=== PATIENT | female | born 1990 | race Caucasian/White ===

== ENCOUNTER 2016-05-31 15:13 | Observation (INO) | payer OTHER ==
[~2016-05-31] VITALS: Ht 152.4 cm; Wt 105.7 kg
[~2016-05-31 15:13] MED LIST: CYCLOBENZAPRIN7.5 M1 PO; IBUPROFEN600 M1 PO; MOBIC 15MG15 MG PO; PERCOCET 5-3251 EACH PO; SKELAXIN800 MG PO; TRAMADOL50 MG PO; ZOFRAN4 M2 PO
--- NOTE | 2016-05-31 15:34 | NUR ---
Informed waiting has been performed.
--- NOTE | 2016-05-31 15:34 | NUR ---
TRIAGE: PT TO ER C/C "I'M HAVING A HARD TIME FEELING THE LEFT SIDE OF MY FACE. I HAVE A WEIRD FEELING IN MY LEFT HAND AND MY PULSE FEELS IRREGULAR". ONSET 40 MIN CRYPTOLOGIC SUPPORT SPECIALIST. DENIES ANY PAIN. TAKEN TO [facility] RM 5 FROM TRIAGE PER DIRECTOR OF CONSUMER AFFAIRS NICK.
--- NOTE | 2016-05-31 15:49 | NUR ---
PT AMBULATORY TO ROOM WITH FAST AND STEADY GAIT.
--- NOTE | 2016-05-31 15:59 | NUR ---
PT COMPLAINS OF NUMBNESS TO LEFT SIDE OF FACE AND FEELING OF LEFT EYE DROOPING. NO DROOPING OF LEFT EYE NOTED. SPEECH IS CLEAR. EVEN WRINKLING ACROSS FOREHEAD NOTED. PT ALSO COMPLAINS OF BLURRY VISION IN LEFT EYE. .
--- NOTE | 2016-05-31 16:00 | NUR ---
BP IN LEFT ARM 130/77 HR 81. BP IN RIGHT ARM 105/51 HR 79. PT COMPLAINS OF NUMBNESS IN LEFT ARM. PT PLACED ON HEART MONITOR.
--- NOTE | 2016-05-31 16:04 | NUR ---
FACIAL SYMMETRY IS NORMAL.
--- NOTE | 2016-05-31 16:31 | ED NEURO DEFICIT/STROKE ---
History of Present Illness General Chief Complaint: General Adult Stated Complaint: LEFT SIDE FACE AND ARM NUMBNESS Source: patient Exam Limitations: no limitations Vital Signs & Intake/Output Vital Signs & Intake/Output Vital Signs Date Time Temp Pulse Resp B/P Pulse O2 O2 Flow FiO2 Ox Delivery Rate 05/31 1603 97 Room Air 05/31 1531 97.3 72 20 123/79 98 Room Air Allergies Coded Allergies: shellfish derived (Intermediate, FACIAL SWELLING AND REDNESS 05/31/16) Reconcile Medications Cyclobenzaprine HCl 7.5 MG TABLET 1 TAB PO QPM PRN MUSCLE SPASMS Ibuprofen 600 MG TABLET 1 TAB PO Q6HR PRN PAIN Meloxicam (Mobic 15MG) 7.5 MG TABLET 1 TAB PO DAILY PRN PAIN/INFLAMMATION Metaxalone 800 MG TABLET 1 TAB PO Q8H PRN MUSCLE RELAXANT Ondansetron HCl (Zofran) 4 MG TABLET 1 TAB PO Q8 NAUSEA Oxycodone HCl/Acetaminophen (Percocet 5-325 MG Tablet) 1 EACH TABLET 1 TAB PO BID PRN PAIN TRAMADOL HCL (Tramadol) 50 MG TABLET 1-2 TAB PO Q6P PRN PAIN Triage Note: TRIAGE: PT TO ER C/C "I'M HAVING A HARD TIME FEELING THE LEFT SIDE OF MY FACE. I HAVE A WEIRD FEELING IN MY LEFT HAND AND MY PULSE FEELS IRREGULAR". ONSET 40 MIN INDEPENDENT LIVING ADVISOR. DENIES ANY PAIN. TAKEN TO [facility] RM 5 FROM TRIAGE PER JUNIOR BRAND MANAGER NICK. Triage Nurses Notes Reviewed? yes : No Patient currently breastfeeds: No HPI: Patient presents for evaluation of an abrupt onset of left facial numbness that occurred about an hour ago while in a conference. Patient states that symptoms began with a headache about an hour prior to the onset of the numbness. The headache resolved within the patient experienced a moderate to severe left facial numbness with an alteration of vision out of the left eye and then numbness of the left arm and hand. Would point she states that she spit out of the left side of her mouth. She denies any associated neck pain. She denies any previous episodes like this. She did experience heart palpitations over the weekend consisting of an intermittent series of pounding heart beats on Monday that lasted for about 2 hours then resolved. She did experience chest heaviness during those episodes. She is a nonsmoker and there is no family history of TIA or CVA. Nothing seemed to make her symptoms improved. Past History Travel History Traveled to [place] past 21 day No Medical History Any Pertinent Medical History? see below for history Neurological: NONE EENT: NONE Cardiovascular: NONE Respiratory: NONE Gastrointestinal: NONE Hepatic: NONE Renal: NONE Musculoskeletal: NONE Psychiatric: NONE Endocrine: NONE Blood Disorders: NONE Cancer(s): NONE PARTS EXPEDITER/Reproductive: NONE Surgical History Surgical History: non-contributory Psychosocial History What is your primary language Yoruba Tobacco Use: Never used ETOH Use: occasional use Illicit Drug Use: denies illicit drug use Family History Hx Contributory? No Review of Systems Review of Systems Constitutional: Reports: no symptoms. EENTM: Reports: no symptoms. Respiratory: Reports: no symptoms. Cardiovascular: Reports: no symptoms. GI: Reports: no symptoms. Genitourinary: Reports: no symptoms. Musculoskeletal: Reports: no symptoms. Skin: Reports: no symptoms. Neurological/Psychological: Reports: see HPI. Hematologic/Endocrine: Reports: no symptoms. Immunologic/Allergic: Reports: no symptoms. All Other Systems: Reviewed and Negative Physical Exam Physical Exam General Appearance: see below Cranial Nerves: normal hearing (see below) Comments: Gen.: Well-nourished, well-developed, no acute respiratory distress. Head: Normocephalic, atraumatic. Eyes: Normal inspection bilaterally Ears: Normal inspection bilaterally Nose: Normal inspection Throat/mouth : Moist mucosa Face: No apparent facial droop, sensation normal bilaterally to light touch. Neck: Supple, full range of motion, no goiter, no bruits or LAD Heart: Regular rate and rhythm, no murmurs rubs or gallops Lungs: Clear to auscultation bilaterally with normal air entry Chest: Nontender Back: Normal range of motion Abdomen: Soft, nontender, nondistended, normal bowel sounds Extremities: Normal range of motion grossly, equal radial pulses, no cyanosis clubbing or edema, hand grasps equal Neurologic: Cranial nerves 2-12 intact, speech is clear Skin: warm and dry Psychiatric: Calm, cooperative, no apparent delusions or hallucinations Core Measures CVA/TIA Diagnosis: Yes NIH Stroke Scale: Total 0 Severe Sepsis Present: No Septic Shock Present: No Bedside Dysphagia Screen Bedside Swallow Eval Done: Yes Result of Evaluation: Pass Progress Differential Diagnosis: Flowers's Palsy, stroke, tia, COMPLEX MIGRAINE Plan of Care: Orders Procedure Date/time Status Place in observation 02/28 1913 Active Add-on Test (ER Only) 05/31 1753 Active Telemetry/Product Developer 05/31 1643 Active EKG 05/31 1643 Active LYME TITRE 05/31 1631 Active URINALYSIS 05/31 1629 Complete TROPONIN LEVEL 05/31 162 Complete PARTIAL THROMBOPLASTIN TIME 05/31 162 Complete PROTHROMBIN TIME 05/31 1629 Complete HUMAN BETA HCG SCREEN 05/31 162 Complete COMPREHENSIVE METABOLIC PANEL 05/31 162 Complete CBC WITHOUT DIFFERENTIAL 05/31 162 Complete Laboratory Tests 05/31/16 1631: Anion Gap 10, Estimated GFR > 60, BUN/Creatinine Ratio 24.3, Glucose 84, Calcium 9.1, Total Bilirubin 0.8, AST 25, ALT 34, Alkaline Phosphatase 66, Troponin I < 0.01, Total Protein 6.9, Albumin 4.0, Globulin 2.9, Albumin/Globulin Ratio 1.4, Total Beta HCG NEGATIVE, PT 11.3, INR 1.08, APTT 32, CBC w Diff NO MAN DIFF REQ, RBC 4.65, MCV 83.2, MCH 27.8, RDW 13.3, MPV 9.2, Gran % 73.1, Lymphocytes % 19.5 L, Monocytes % 6.0, Eosinophils % 0.7, Basophils % 0.7, Absolute Granulocytes 7.9 H, Absolute Lymphocytes 2.1, Absolute Monocytes 0.6, Absolute Eosinophils 0.1, Absolute Basophils 0.1, PUBS MCHC 33.5, Lyme Disease Antibody Pending, Urine Color YEL, Urine Clarity CLEAR, Urine pH 6.0, Ur Specific [place] 1.020, Urine Protein NEG, Urine Ketones NEG, Urine Nitrite NEG, Urine Bilirubin NEG, Urine Urobilinogen 0.2, Ur Leukocyte Esterase NEG, Ur Microscopic EXAM NOT REQUIRED, Urine Hemoglobin NEG, Urine Glucose NEG Diagnostic Imaging: Discussed w/RAD: CT Scan. Radiology Impression: PATIENT: NEIL POWERS PRESENT AGE: 26 PATIENT ACCOUNT NO: [id number] : 88 LOCATION: [facility] ORDERING PHYSICIAN: ANTHONY FLOWERS MD SERVICE DATE: 05/31/16-163 EXAM TYPE: CAT - CT HEAD WO IV CONTRAST EXAMINATION: CT HEAD WITHOUT CONTRAST CLINICAL INFORMATION: Left facial numbness. COMPARISON: CT head 12/05/2013 TECHNIQUE: Contiguous axial imaging was performed from the skull base to vertex without intravenous administration of contrast. DLP: 600.71 mGy-cm FINDINGS: There is no evidence of acute intracranial hemorrhage or territorial infarction. No abnormal mass effect or midline shift is seen. Su to white matter differentiation is well preserved. No extra-axial fluid collections are identified. The ventricles are normal in size. There is no abnormal attenuation within the brain parenchyma. The osseous structures and soft tissues are normal. The mastoid air cells and visualized portions of the paranasal sinuses are well aerated. IMPRESSION: No acute intracranial pathology. DICTATED BY: YENY WESTBROOK MD DATE/ TIME DICTATED:05/31/161739 SCIENTIFIC RECRUITER:STACEY DATE/TIME TRANSCRIBED: 05/31/161739 CONFIDENTIAL, DO NOT COPY WITHOUT APPROPRIATE AUTHORIZATION. < Electronically signed in Other Vendor System> SIGNED BY: YENY WESTBROOK MD 1743 Initial ED EKG: NSR, rate (81), no ST T wave changes Comments: 05/31/2016 6:13:13 PM I have updated Neil on her test results. I have discussed her case with Dr. Modi who agrees with an aspirin and an observation stay for follow-up MRI scan and carotid Doppler studies. Departure Departure Disposition: STILL A PATIENT Condition: Stable Clinical Impression Primary Impression: Facial paresthesia Referrals: AUGUSTINE DAVID MD (PCP/Family) Departure Forms: Customer Survey General Discharge Information
[2016-05-31 16:53] LABS: PT 11.3 SEC (9.4-12.5); PTT 32 SEC (25-37)
[2016-05-31 16:55] LABS: ABSOLUTE BASOPHIL COUNT 0.1 /CUMM (0.0-0.2); ABSOLUTE EOSINOPHIL COUNT 0.1 /CUMM (0.0-0.7); ABSOLUTE GRANULOCYTE CT 7.9 /CUMM (1.4-6.5); ABSOLUTE LYMPH COUNT 2.1 /CUMM (1.2-3.4); ABSOLUTE MONOCYTE COUNT 0.6 /CUMM (0.10-0.60); BASOPHIL % 0.7 % (0.0-2.0); EOSINOPHIL % 0.7 % (0-5); GRANULOCYTE % 73.1 % (42.2-75.2); HEMATOCRIT 38.7 % (37-47); MEAN CORPUSCULAR HGB 27.8 PG (27.0-31.0); MEAN CORPUSCULAR HGB CONC 33.5 G/DL (33.0-37.0); MEAN CORPUSCULAR VOLUME 83.2 FL (81.0-99.0); MEAN PLATELET VOLUME 9.2 FL (7.4-10.4); PLATELET COUNT 173 /CUMM (130-400); RBC DISTRIBUTION WIDTH 13.3 % (11.5-14.5); RED BLOOD CELL CT 4.65 /CUMM (4.20-5.40); WHITE BLOOD CELL COUNT 10.8 /CUMM (4.8-10.8)
--- NOTE | 2016-05-31 17:31 | NUR ---
PT TO AND FROM CAT SCAN VIA STRETCHER.
--- NOTE | 2016-05-31 17:44 | CT SCAN REPORT ---
EXAMINATION: CT HEAD WITHOUT CONTRAST CLINICAL INFORMATION: Left facial numbness. COMPARISON: CT head 12/05/2013 TECHNIQUE: Contiguous axial imaging was performed from the skull base to vertex without intravenous administration of contrast. DLP: 600.71 mGy-cm FINDINGS: There is no evidence of acute intracranial hemorrhage or territorial infarction. No abnormal mass effect or midline shift is seen. Su to white matter differentiation is well preserved. No extra-axial fluid collections are identified. The ventricles are normal in size. There is no abnormal attenuation within the brain parenchyma. The osseous structures and soft tissues are normal. The mastoid air cells and visualized portions of the paranasal sinuses are well aerated. IMPRESSION: No acute intracranial pathology.
--- NOTE | 2016-05-31 18:36 | NUR ---
PT MEDICATED WITH 325MG ASPIRIN PO.
--- NOTE | 2016-05-31 19:32 | NUR ---
PT INFORMED OF PLAN OF CARE VIA DR MANN.
--- NOTE | 2016-05-31 19:54 | NUR ---
IV EST IN LF #[id number]
--- NOTE | 2016-05-31 20:33 | History & Physical ---
JEANINE MCKEON,YAO 05/31/162026: General Information and HPI MD Statement: I have seen and personally examined NEIL POWERS and documented this H&P. The patient is a 26 year old F who presented with a patient stated chief complaint of [numbness on the left side of my face]. Source of Information: patient Exam Limitations: no limitations History of Present Illness: Patient is a 26-year-old female with no significant past history presented to the emergency room this afternoon after she noted an abrupt left posterior subdural headache followed by left facial numbness around 3 PM this afternoon. She states that she was at a conference this afternoon in her symptoms started abruptly and subsequently she had some decreased vision loss in the left eye which has since been alleviated. She states that the numbness on left side of her face is still persistent however is not as severe as before. She also complained of accompanying left hand numbness with significant numbness of the index middle and ring finger of the left hand also. States that the paresthesia in her hands have completely alleviated. Her only complaint at present is mild left-sided facial numbness. Denies any history of GEN cell arteritis. Denies any history of TIA, stroke or myocardial infarction the past. Denies any abrupt vision loss or motor dysfunction. No facial drooling. The only thing she says is different is that on Monday she started a weight loss supplement and noticed palpitations after and stopped it after 3 doses on Monday. Allergies/Medications Allergies: Coded Allergies: shellfish derived (Intermediate, FACIAL SWELLING AND REDNESS 05/31/16) Past History Travel History Traveled to [place] past 21 day No Medical History Neurological: NONE EENT: NONE Cardiovascular: NONE Respiratory: NONE Gastrointestinal: NONE Hepatic: NONE Renal: NONE Musculoskeletal: NONE Psychiatric: NONE Endocrine: NONE Blood Disorders: NONE Cancer(s): NONE CAREER SERVICES ASSISTANT/Reproductive: NONE Surgical History Surgical History: non-contributory Past Family/Social History Psychosocial History Where do you live? Home Who Do You Live With? parent Services at Home: None Primary Language: Icelandic Smoking Status: Never Smoked ETOH Use: occasional use Illicit Drug Use: denies illicit drug use Functional Ability ADLs Independent: dressing, eating, toileting, bathing. IADLs Independent: shopping, housework, finances, food prep, telephone, transportation , medication admin. Review of Systems Review of Systems Constitutional: Reports: see HPI. Exam & Diagnostic Data Last 24 Hrs of Vital Signs/I&O Vital Signs Date Time Temp Pulse Resp B/P Pulse O2 O2 Flow FiO2 Ox Delivery Rate 05/31 1603 97 Room Air 05/31 1531 97.3 72 20 123/79 98 Room Air Intake & Output 05/31 1600 05/31 0800 05/31 0000 Intake Total Output Total Balance Patient 233 lb Weight Physical Exam General Appearance Alert, Oriented X3, Cooperative Skin No Rashes, No Breakdown HEENT Atraumatic, PERRLA, EOMI Neck Supple, No JVD, No thryomegaly, +2 Carotid Pulse wo Bruit Cardiovascular Regular Rate, Normal S1, Normal S2 Lungs Clear to Auscultation, Normal Air Movement Abdomen Normal Bowel Sounds, Soft, No Tenderness, No Hepatospenomegaly, No Masses Neurological Normal Gait, Normal Speech, Strength at 5/5 X4 Ext, Normal Tone, Sensation Intact, Cranial Nerves 3-12 NL, Reflexes 2+ Extremities No Clubbing, No Cyanosis, No Edema, passed bedside swallow eval, 5/5 strength all 4 extremities, sensation intact, no visual cuts, finger to nose normal, no cerebellar signs Vascular Normal Pulses, Pulses Symmetrical Last 24 Hrs of Labs/Lam: Laboratory Tests 05/31/16 1631: Anion Gap 10, Estimated GFR > 60, BUN/Creatinine Ratio 24.3, Glucose 84, Calcium 9.1, Total Bilirubin 0.8, AST 25, ALT 34, Alkaline Phosphatase 66, Troponin I < 0.01, Total Protein 6.9, Albumin 4.0, Globulin 2.9, Albumin/Globulin Ratio 1.4, Total Beta HCG NEGATIVE, PT 11.3, INR 1.08, APTT 32, CBC w Diff NO MAN DIFF REQ, RBC 4.65, MCV 83.2, MCH 27.8, RDW 13.3, MPV 9.2, Gran % 73.1, Lymphocytes % 19.5 L, Monocytes % 6.0, Eosinophils % 0.7, Basophils % 0.7, Absolute Granulocytes 7.9 H, Absolute Lymphocytes 2.1, Absolute Monocytes 0.6, Absolute Eosinophils 0.1, Absolute Basophils 0.1, PUBS MCHC 33.5, Lyme Disease Antibody Pending, Urine Color YEL, Urine Clarity CLEAR, Urine pH 6.0, Ur Specific [place] 1.020, Urine Protein NEG, Urine Ketones NEG, Urine Nitrite NEG, Urine Bilirubin NEG, Urine Urobilinogen 0.2, Ur Leukocyte Esterase NEG, Ur Microscopic EXAM NOT REQUIRED, Urine Hemoglobin NEG, Urine Glucose NEG Diagnostic Data EKG Results Rate 81, DC 144, QRS 90, QTc 441 Normal sinus rhythm Other Results IMPRESSION: No acute intracranial pathology. Assessment/Plan Assessment: Assessment- 1. Possible TIA 2. Left facial parasthesia Plan- Admit to telemetry Vitals per protocol Every 2 neurochecks Aspirin 81 mg daily, check lipid panel, high-dose statin- atorvastatin 80 mg daily Carotid Doppler MRI of the head with and without gadolinium in the morning Echocardiogram Cardiology and neurology consultation Will order ESR, rule out giant cell Subcutaneous Lovenox for DVT prophylaxis Regular diet Pain pathway Full code As Ranked By This Provider Problem List: 1. Facial paresthesia Core Measures/Miscellaneous Acute Coronary Syndrome ACS Diagnosis: No Cerebrovascular Accident CVA/TIA Diagnosis: Yes NIH Stroke Scale: Total 0 Date Last Known Well: 05/31/16 Symptom Start Date: 05/31/16 Reason tPA not ordered Medical Contraindication Bedside Swallow Eval Done: Yes Result of Evaluation: Pass Antithrombotic: Yes AFIB: No Aflutter: No Anticoagulant: Yes Evidence of Atherosclerosis: No LDL Assessed Within 24 Hours: Yes Currently on Statin: Yes PT Consult Ordered: No Comment: no PT needed Congestive Heart Failure CHF Diagnosis: No Venous Thromboembolism VTE Risk Factors: Obesity VTE Prophylaxis [facility]dered In[facility]/t: No contraindications No VTE Pharm Prophylaxis d/t: No contraindications VTE Diagnosis: No VTE Type: NONE VTE Confirmed by (Test): NONE Severe Sepsis Severe Sepsis Present: No Septic Shock Septic Shock Present: No Miscellaneous Documentation Attending Case Discussed With: SHARON FORD MD Primary Care Physician: JOANN MCKEON,[facility] Patient sees these Specialists none Level of Patient Care: Telemetry Resident Review Statement Resident Statement: examined this patient, discussed with internal medicine doctor SHARON FORD 06/01/16 0146: General Information and HPI Allergies/Medications Home Med list No Known Home Medications Attending MD Review Statement Attending Statement Attending MD Statement: examined this patient, discuss w/resident/PA/HEAD BAGGAGE PORTER, agreed w/resident/PA/HEAD BAGGAGE PORTER, reviewed EMR data (avail), reviewed images, amended to note Attending Assessment/Plan: CC: Numbness left side of the face and left arm numbness PMH: None Patient came to ER for acute onset of left facial numbness and left arm numbness , occurred about an hour ago before arrival. Patient states she had transient headache about an hour prior to the onset of the numbness. Left facial numbness started from occipital area gradually spreading to face, eventually associated with with vision changes left eye and then numbness of the left arm and hand. No neck pain, no chest pain, no current headache, no LOC, no seizure-like activity. currently most of her symptoms resolved except some numbness on the left side of her face. She denies any previous episodes like this. She had an episode of heart palpitations over the weekend after starting weight loss medication. Vitals: Afebrile, pulse, RRR, blood pressure, O2 saturation within acceptable range. On examination: A O 3, anxious, no acute distress, neck supple, no lymphadenopathy, no JVD, mucosa moist, gait stable, no pronator drift, complete neurological examination including sensory examination and vision examination normal. Pupils equal round reactive bilaterally. CVS: S1-S2, RRR. RS: Clear to auscultate bilaterally. Abdomen: Soft, NT, ND, bowel sounds present. No peripheral edema, peripheral pulses and perfusion normal. Labs: CBC, BMP, LFT, urinalysis within acceptable range. CT head: No acute intracranial pathology. EKG unremarkable A and P #1 transient numbness of left side of face: Along with vision changes and left arm numbness. All symptoms resolved, except minimum numbness on the left side of the face. Given her risk evaluation, no smoking, no diabetes, no hypertension, no dyslipidemia, cardiac arrhythmias, young age, less likely TIA. But will benefit from workup with 2-D echocardiogram, telemetry monitoring, carotid Doppler, lipid profile, neurochecks. Patient received aspirin in ER, and the dose of statin. Inform neurology in a.m., MRI brain in a.m. Other possibilities including arachnoid hemorrhage, carotid dissection less likely as currently hemodynamically stable, no focal neurological deficit, no chest pain, no headache. There is suspicion of MS again she will benefit from MRI brain. #2 DVT prophylaxis: Alps and ambulation
--- NOTE | 2016-05-31 20:43 | NUR ---
BP IN RIGHT ARM 118/72 HR 80 BP IN LEFT ARM 102/70 HR 80
--- NOTE | 2016-05-31 20:50 | NUR ---
PT HAS BED #188-1
--- NOTE | 2016-05-31 21:05 | NUR ---
PHARMACY CALLED FOR LIPITOR.
--- NOTE | 2016-05-31 21:27 | NUR ---
PT TO US VIA STRETCHER REPORT CALLED TO MARA ON TELE
[2016-05-31 22:30] VITALS: BP 138/78
--- NOTE | 2016-05-31 22:57 | ULTRASOUND REPORT ---
EXAMINATION: US DUPLEX CAROTID AND VERTEBRAL CLINICAL INFORMATION: Assess for stenosis. Previous head CT describes left facial numbness. COMPARISON: Head CT performed earlier today. TECHNIQUE: Real-time ultrasound and Doppler techniques (integrating B-mode 2D vascular images, Doppler spectral analysis and color flow Doppler imaging) were utilized to interrogate the extracranial carotid and vertebral arteries bilaterally. The degree of stenosis determined by criteria similar to NASCET. FINDINGS: Right common carotid artery peak systolic velocities range between 80.3 and 119 cm/s with a maximal end-diastolic velocity of 23.6 cm/s. Right internal carotid artery peak systolic velocities range between 68 and 104 cm/s with maximal end-diastolic velocity of 33 cm/s. There is antegrade flow within the right vertebral artery. No calcific atherosclerotic disease is appreciated at the right carotid bifurcation. Left common carotid artery peak systolic velocities range between 85 and 116 cm/s with a maximal end-diastolic velocity of 25.9 cm/s. Left internal carotid artery peak systolic velocities range between 58.6 and 131 cm/s with a maximal end-diastolic velocity of 65.2 cm/s. Left external carotid artery peak systolic velocity is 74.5 cm/s. There is antegrade flow within the left vertebral artery. No calcific atherosclerotic disease of the left carotid bifurcation. Left internal carotid artery is tortuous distally. IMPRESSION: An apparent 50-69% stenosis of the left internal carotid artery by sonographic criteria may be artifactually related to vessel tortuosity versus a true stenosis. There is no significant arterial stenosis involving the right internal carotid artery. Normal antegrade flow within the vertebral arteries bilaterally.
[2016-06-01 08:00] VITALS: BP 108/58
--- NOTE | 2016-06-01 09:20 | Cons- Cardiology ---
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 The patient presented to the emergency room yesterday with new onset neurologic symptoms. The patient was sitting in a conference and developed a left posterior headache which was followed by numbness of the left face at about 3:00 yesterday. At that time, she also felt that her right carotid pulse was pounding and that her left carotid pulse was markedly less than on the right side. She also had a sense of visual disturbance in the left eye was subsequently dissipated. Over the next several hours, patient's symptoms slowly abated. She also noted some numbness of her left hand. This has also dissipated as well. Today, the patient is generally feeling well. In the course of her evaluation, the patient was noted to have an abnormal carotid ultrasound. I was asked to see the patient for assistance with management of any related cardiac issues. The patient has otherwise been stable from a cardiac standpoint. She denies any known history of cardiovascular risk factors or cardiac disease. She was seen at the [facility] weight loss program and started on phentermine. She took 3 doses on Monday but noted palpitations and did not take any further doses after that time. She denies any prior history of palpitations or arrhythmia. Allergies/Medications Allergies: Coded Allergies: shellfish derived (Intermediate, FACIAL SWELLING AND REDNESS 05/31/16) Home Med List: No Known Home Medications Current Medications: Current Medications Sig/Lon Start time Last Medication Dose Route Stop Time Status Admin Acetaminophen 650 MG Q6 05/31 2359 DC PO Acetaminophen 650 MG Q6P PRN 05/31 2315 AC PO Acetaminophen/ 1 TAB Q6 05/31 2359 DC Hydrocodone Bitart PO Acetaminophen/ 1 TAB Q6P PRN 05/31 2315 AC Hydrocodone Bitart PO Aspirin 81 MG DAILY 06/01 1000 AC PO Aspirin 0 .STK-MED ONE 05/31 1837 DC PO Aspirin 325 MG ONCE ONE 05/31 1815 DC 05/31 PO 05/31 181 183 Atorvastatin Calcium 80 MG 1700 05/31 2100 AC 05/31 PO 2117 Enoxaparin Sodium 40 MG DAILY 06/01 1000 AC SC Oxycodone/ 2 TAB Q6P PRN 05/31 2100 AC Acetaminophen PO Past History Travel History Traveled to [place] past 21 day No Medical History Blood Transfusion Hx: No Neurological: NONE EENT: NONE Cardiovascular: NONE Respiratory: NONE Gastrointestinal: NONE Hepatic: NONE Renal: NONE Musculoskeletal: NONE Psychiatric: NONE Endocrine: NONE Blood Disorders: NONE Cancer(s): NONE RODEO RIDER/Reproductive: NONE Surgical History Surgical History: non-contributory Psychosocial History Where Do You Live? Home Who Do You Live With? parent Services at Home: None Primary Language: [place] Smoking Status: Never Smoked ETOH Use: occasional use Illicit Drug Use: denies illicit drug use Functional Ability ADLs Independent: dressing, eating, toileting, bathing. IADLs Independent: shopping, housework, finances, food prep, telephone, transportation , medication admin. Exam & Diagnostic Data Vital Signs and I&O Vital Signs Date Time Temp Pulse Resp B/P Pulse O2 O2 Flow FiO2 Ox Delivery Rate 06/02 799 97.9 78 20 108/58 97 Room Air 05/31 2230 97.8 96 18 138/78 98 Room Air 05/31 204 80 102/70 05/31 2041 80 118/72 05/31 1603 97 Room Air 05/31 1531 97.3 72 20 123/79 98 Room Air Intake & Output 06/01 1600 06/01 0800 06/01 0000 05/31 1600 05/31 0800 05/31 0000 Intake Total 480 480 Output Total Balance 480 480 Intake, Oral 480 480 Number 1 Bowel Movements Patient 233 lb 233 lb Weight Physical Exam: General Appearance Alert, Oriented X3, Cooperative Skin normal HEENT normal Neck Supple, No JVD, No thryomegaly, +2 Carotid Pulse wo Bruit Cardiovascular Regular Rate, Normal S1, Normal S2, no audible murmurs Lungs Clear to Auscultation and percussion bilaterally Abdomen Normal Neurological grossly nonfocal Extremities No Clubbing, No Cyanosis, No Edema, Vascular Normal Pulses, Pulses Symmetrical Labs/Lam Results: Laboratory Tests 05/31 05/31 05/31 2340 2340 1631 Chemistry Sodium (137 - 145 mmol/L) 137 Potassium (3.5 - 5.1 mmol/L) 4.0 Chloride (98 - 107 mmol/L) 106 Carbon Dioxide (22 - 30 mmol/L) 21 L Anion Gap (5 - 16) 10 BUN (7 - 17 mg/dL) 17 Creatinine (0.5 - 1.0 mg/dL) 0.7 Estimated GFR (>60 ml/min) > 60 BUN/Creatinine Ratio (7 - 25 %) 24.3 Glucose (65 - 99 mg/dL) 84 Calcium (8.4 - 10.2 mg/dL) 9.1 Total Bilirubin (0.2 - 1.3 mg/dL) 0.8 AST (14 - 36 U/L) 25 ALT (9 - 52 U/L) 34 Alkaline Phosphatase (<127 U/L) 66 Troponin I (< 0.11 ng/ml) < 0.01 Total Protein (6.3 - 8.2 g/dL) 6.9 Albumin (3.5 - 5.0 g/dL) 4.0 Globulin (1.9 - 4.2 gm/dL) 2.9 Albumin/Globulin Ratio (1.1 - 2.2 %) 1.4 Triglycerides (<150 mg/dL) 48 Cholesterol (<200 MG/DL) 119 LDL Cholesterol, Calc (65 - 129 mg/dL) 60 L HDL Cholesterol (40 - 60 mg/dL) 50 Cholesterol/HDL Ratio (0.00 - 4.23 %) 2 Vitamin B12 (239 - 931 pg/mL) 550 Vit D 1,25-Dihyd Total Pending 1,25 Dihydroxy Vit D2 Pending 1,25 Dihydroxy Vit D3 Pending Folate (2.76 - 20.0 ng/mL) 11.8 TSH (0.270 - 4.200 uIU/mL) 1.990 Free T4 (0.79 - 2.35 ng/dL) 1.09 Total Beta HCG (NEGATIVE) NEGATIVE Coagulation PT (9.4 - 12.5 SEC) 11.3 INR (0.90 - 1.19) 1.08 APTT (25 - 37 SEC) 32 Hematology CBC w Diff NO MAN DIFF REQ WBC (4.8 - 10.8 /CUMM) 10.8 RBC (4.20 - 5.40 /CUMM) 4.65 Hgb (12.0 - 16.0 G/DL) 12.9 Hct (37 - 47 %) 38.7 MCV (81.0 - 99.0 FL) 83.2 MCH (27.0 - 31.0 PG) 27.8 RDW (11.5 - 14.5 %) 13.3 Plt Count (130 - 400 /CUMM) 173 MPV (7.4 - 10.4 FL) 9.2 Gran % (42.2 - 75.2 %) 73.1 Lymphocytes % (20.5 - 51.1 %) 19.5 L Monocytes % (1.7 - 9.3 %) 6.0 Eosinophils % (0 - 5 %) 0.7 Basophils % (0.0 - 2.0 %) 0.7 Absolute Granulocytes (1.4 - 6.5 /CUMM) 7.9 H Absolute Lymphocytes (1.2 - 3.4 /CUMM) 2.1 Absolute Monocytes (0.10 - 0.60 /CUMM) 0.6 Absolute Eosinophils (0.0 - 0.7 /CUMM) 0.1 Absolute Basophils (0.0 - 0.2 /CUMM) 0.1 PUBS MCHC (33.0 - 37.0 G/DL) 33.5 ESR Westergren (0 - 20 MM) 7 Serology Lyme Disease Antibody Pending Toxicology Urine Opiates Screen (>2000 NG/ML) < 100.00 Methadone Screen (>300 NG/ML) < 40 Barbiturate Screen (>200 NG/ML) < 60 Ur Phencyclidine Scrn (>25 NG/ML) < 6.00 Amphetamines Screen (>1000 NG/ML) < 100 U Benzodiazepines Scrn (>200 NG/ML) < 85 Urine Cocaine Screen (>300 NG/ML) < 50 Urine Cannabis Screen (>50 NG/ML) < 5.00 Urines Urine Color (YEL,AMB,STR) YEL Urine Clarity (CLEAR) CLEAR Urine pH (5.0 - 8.0) 6.0 Ur Specific [place] (1.001 - 1.035) 1.020 Urine Protein (NEG,<30 MG/DL) NEG Urine Ketones (NEG) NEG Urine Nitrite (NEG) NEG Urine Bilirubin (NEG) NEG Urine Urobilinogen (0.1 - 1.0 EU/dl) 0.2 Ur Leukocyte Esterase (NEG) NEG Urine Hemoglobin (NEG) NEG Urine Glucose (N MG/DL) NEG Diagnostic Data Other Results Carotid Doppler: MPRESSION: An apparent 50-69% stenosis of the left internal carotid artery by sonographic criteria may be artifactually related to vessel tortuosity versus a true stenosis. There is no significant arterial stenosis involving the right internal carotid artery. Normal antegrade flow within the vertebral arteries bilaterally. Assessment/Plan Assessment/Plan Assessment: 1. Neurologic symptoms; Possible TIA-at the present time, the patient's symptoms have entirely resolved. MRI, neurology input, etc. remain pending. Any decisions about possible further cardiac evaluation will depend on neurology input and the results of the MRI. 2. Abnormal carotid ultrasound-review of the patient's MRI shows a normal right carotid system. On the left carotid system, the common carotid, bifurcation, and proximal internal and external carotid arteries are grossly normal. In the mid to distal internal carotid artery there is a loud area of vessel tortuosity present with flow turbulence and elevated flow velocities. The Doppler findings may purely be related to the vessel tortuosity. No clear anatomic images are recorded. There is a ill-defined linear echodensity present at the level of the lesser tortuosity which likely represents artifact. Further evaluation pending. Recommendations: -For now, I would await neurology input and the results of the MRI prior to any further plans. -Further decisions after the neurology evaluation and MRI are available. -At some point, follow-up ultrasound images of the left carotid system would be useful to better define the anatomic in the area of the vessel tortuosity. Consult Acknowledgment - Thank you for your consult request.
--- NOTE | 2016-06-01 12:00 | PN- Att Addend ---
Attending Addendum Attending Brief Note 26F no PMH presenting with acute onset of left sided facial numbness and weakness, left hand numbness and weakness, lasting for a few hours. Patient was in her usual state of health and was attending a conference. SHe had been experiencing posterior headache for a few hours prior to symptoms. Her hand and facial symptoms have resolved, and she feels a heaviness to her left eye. Vision is intact. No other neurological symptoms. Neuro exam, including cranial nerve exam, is grossly intact. Of note, patient had started phendimetrazine as a weight loss supplement 5 days ago, but had stopped after 3 days. Carotid doppler had shown 60% stenosis vs tortuous artery on left. EKG is NSR. Current Medications Sig/Lon Start time Last Medication Dose Route Stop Time Status Admin Acetaminophen 650 MG Q6 05/31 2359 DC PO Acetaminophen 650 MG Q6P PRN 05/31 2315 AC PO Acetaminophen/ 1 TAB Q6 05/31 2359 DC Hydrocodone Bitart PO Acetaminophen/ 1 TAB Q6P PRN 05/31 2315 AC Hydrocodone Bitart PO Aspirin 81 MG DAILY 06/01 1000 AC 06/01 PO 1042 Aspirin 0 .STK-MED ONE 05/31 1837 DC PO Aspirin 325 MG ONCE ONE 05/31 1815 DC 05/31 PO 05/31 1816 1836 Atorvastatin Calcium 80 MG 1700 05/31 2100 AC 05/31 PO 2118 Enoxaparin Sodium 40 MG DAILY 06/01 1000 AC SC Oxycodone/ 2 TAB Q6P PRN 05/31 2100 AC Acetaminophen PO Laboratory Tests 05/31 05/31 05/31 2340 2340 1631 Chemistry Sodium (137 - 145 mmol/L) 137 Potassium (3.5 - 5.1 mmol/L) 4.0 Chloride (98 - 107 mmol/L) 106 Carbon Dioxide (22 - 30 mmol/L) 21 L Anion Gap (5 - 16) 10 BUN (7 - 17 mg/dL) 17 Creatinine (0.5 - 1.0 mg/dL) 0.7 Estimated GFR (>60 ml/min) > 60 BUN/Creatinine Ratio (7 - 25 %) 24.3 Glucose (65 - 99 mg/dL) 84 Calcium (8.4 - 10.2 mg/dL) 9.1 Total Bilirubin (0.2 - 1.3 mg/dL) 0.8 AST (14 - 36 U/L) 25 ALT (9 - 52 U/L) 34 Alkaline Phosphatase (<127 U/L) 66 Troponin I (< 0.11 ng/ml) < 0.01 Total Protein (6.3 - 8.2 g/dL) 6.9 Albumin (3.5 - 5.0 g/dL) 4.0 Globulin (1.9 - 4.2 gm/dL) 2.9 Albumin/Globulin Ratio (1.1 - 2.2 %) 1.4 Triglycerides (<150 mg/dL) 48 Cholesterol (<200 MG/DL) 119 LDL Cholesterol, Calc (65 - 129 mg/dL) 60 L HDL Cholesterol (40 - 60 mg/dL) 50 Cholesterol/HDL Ratio (0.00 - 4.23 %) 2 Vitamin B12 (239 - 931 pg/mL) 550 Vit D 1,25-Dihyd Total Pending 1,25 Dihydroxy Vit D2 Pending 1,25 Dihydroxy Vit D3 Pending Folate (2.76 - 20.0 ng/mL) 11.8 TSH (0.270 - 4.200 uIU/mL) 1.990 Free T4 (0.79 - 2.35 ng/dL) 1.09 Total Beta HCG (NEGATIVE) NEGATIVE Coagulation PT (9.4 - 12.5 SEC) 11.3 INR (0.90 - 1.19) 1.08 APTT (25 - 37 SEC) 32 Hematology CBC w Diff NO MAN DIFF REQ WBC (4.8 - 10.8 /CUMM) 10.8 RBC (4.20 - 5.40 /CUMM) 4.65 Hgb (12.0 - 16.0 G/DL) 12.9 Hct (37 - 47 %) 38.7 MCV (81.0 - 99.0 FL) 83.2 MCH (27.0 - 31.0 PG) 27.8 RDW (11.5 - 14.5 %) 13.3 Plt Count (130 - 400 /CUMM) 173 MPV (7.4 - 10.4 FL) 9.2 Gran % (42.2 - 75.2 %) 73.1 Lymphocytes % (20.5 - 51.1 %) 19.5 L Monocytes % (1.7 - 9.3 %) 6.0 Eosinophils % (0 - 5 %) 0.7 Basophils % (0.0 - 2.0 %) 0.7 Absolute Granulocytes (1.4 - 6.5 /CUMM) 7.9 H Absolute Lymphocytes (1.2 - 3.4 /CUMM) 2.1 Absolute Monocytes (0.10 - 0.60 /CUMM) 0.6 Absolute Eosinophils (0.0 - 0.7 /CUMM) 0.1 Absolute Basophils (0.0 - 0.2 /CUMM) 0.1 PUBS MCHC (33.0 - 37.0 G/DL) 33.5 ESR Westergren (0 - 20 MM) 7 Serology Lyme Disease Antibody (RATIO) 0.16 Toxicology Urine Opiates Screen (>2000 NG/ML) < 100.00 Methadone Screen (>300 NG/ML) < 40 Barbiturate Screen (>200 NG/ML) < 60 Ur Phencyclidine Scrn (>25 NG/ML) < 6.00 Amphetamines Screen (>1000 NG/ML) < 100 U Benzodiazepines Scrn (>200 NG/ML) < 85 Urine Cocaine Screen (>300 NG/ML) < 50 Urine Cannabis Screen (>50 NG/ML) < 5.00 Urines Urine Color (YEL,AMB,STR) YEL Urine Clarity (CLEAR) CLEAR Urine pH (5.0 - 8.0) 6.0 Ur Specific [place] (1.001 - 1.035) 1.020 Urine Protein (NEG,<30 MG/DL) NEG Urine Ketones (NEG) NEG Urine Nitrite (NEG) NEG Urine Bilirubin (NEG) NEG Urine Urobilinogen (0.1 - 1.0 EU/dl) 0.2 Ur Leukocyte Esterase (NEG) NEG Urine Hemoglobin (NEG) NEG Urine Glucose (N MG/DL) NEG Plan - Observation in telemetry - Obtain MRI head - Vascular surgery consult for carotid doppler - Cardiology consulted, please follow recommendations - Obtain echocardiogram - Lipid panel and TSH normal - Neurology consult - Will continue ASA and statin for now, but suspect more like symptoms are either migraine or medication related - DVT PPx
--- NOTE | 2016-06-01 12:40 | MRI REPORT ---
EXAMINATION: MR BRAIN WITHOUT AND WITH CONTRAST CLINICAL INFORMATION: Left facial numbness. Assess for acute stroke versus TIA. COMPARISON: CT scan of the head 05/31/2016. TECHNIQUE: MRI of the brain was obtained using routine sequences before and after the intravenous administration of 10 mL of Gadavist. FINDINGS: No diffusion abnormalities are identified to suggest an acute or subacute infarct. No mass effect or midline shift is seen. The ventricles are normal in size. There are a few scattered foci of increased T2 and FLAIR signal in the periventricular and subcortical white matter. No extra-axial fluid collections are seen. The cerebellar tonsillar tips lie 3 mm below the level of the foramen magnum and appear slightly pointed. The brainstem appears normal. There is a linear area of enhancement in the right frontal lobe, which may be consistent with a developmental venous anomaly (image 16/25, sequence 12). No pathologic magnetic susceptibility artifact is identified on the gradient refocused acquisition. Marrow signal and midline structures are normal. The major intracranial flow-voids at the level of the [place] are preserved. The dural venous sinus flow-voids are maintained. The mastoid air cells and paranasal sinuses are well-aerated. IMPRESSION: 1. There are no acute bleeds or infarcts. 2. 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 3. There are no masses or areas of abnormal enhancement. 4. The small foci of increased T2 and FLAIR signal in the white matter are nonspecific and may be consistent with sequelae of vasculitis or migraine. 5. The cerebellar tonsillar tips lie 3 mm below the level of the foramen magnum and appear slightly pointed. This may be consistent with a mild Chiari I malformation.
--- NOTE | 2016-06-01 13:02 | PN- Housestaff ---
See Addendum Subjective Follow-up For: Questionable migraine Tele-Events Since Last Visit: Sinus rhythm no overnight events Subjective: Seen and examined the patient, continues to have left lower lid heaviness. Denies any tingling numbness weakness of the upper and lower extremities. That she took phendimetrazine on monday for the first time. After she took the medication she had transient palpitations. Review of Systems Constitutional: Denies: chills, diaphoresis, fever, malaise, weakness, unexplained weight loss. Cardiovascular: Denies: chest pain, edema, orthopena, palpitations, peripheral edema, syncope. Respiratory: Denies: cough, hemoptysis, orthopnea, short of breath, sputum production, stridor, wheezing. Objective Last 24 Hrs of Vital Signs/I&O Vital Signs Date Time Temp Pulse Resp B/P Pulse O2 O2 Flow FiO2 Ox Delivery Rate 06/02 799 97.9 78 20 108/58 97 Room Air 05/31 2230 97.8 96 18 138/78 98 Room Air 05/31 204 80 102/70 05/31 2041 80 118/72 05/31 1603 97 Room Air Intake & Output 06/01 1600 06/01 0800 06/01 0000 Intake Total 480 480 Output Total Balance 480 480 Intake, Oral 480 480 Number 1 1 Bowel Movements Patient 233 lb Weight Physical Exam General Appearance: Alert, Oriented X3, Cooperative, No Acute Distress Cardiovascular: Regular Rate, Normal S1, Normal S2 Lungs: Clear to Auscultation, Normal Air Movement Abdomen: Normal Bowel Sounds, Soft Neurological: Strength at 5/5 X4 Ext, Normal Tone, Sensation Intact, Cranial Nerves 3-12 NL Current Medications: Current Medications Sig/Lon Start time Last Medication Dose Route Stop Time Status Admin Acetaminophen 650 MG Q6 05/31 2359 DC PO Acetaminophen 650 MG Q6P PRN 05/31 2315 AC PO Acetaminophen/ 1 TAB Q6 05/31 2359 DC Hydrocodone Bitart PO Acetaminophen/ 1 TAB Q6P PRN 05/31 2315 AC Hydrocodone Bitart PO Aspirin 81 MG DAILY 06/01 1000 AC 06/01 PO 1042 Aspirin 0 .STK-MED ONE 05/31 1837 DC PO Aspirin 325 MG ONCE ONE 05/31 1815 DC 05/31 PO 05/31 181 183 Atorvastatin Calcium 80 MG 1700 05/31 2099 AC 05/31 PO 2118 Enoxaparin Sodium 40 MG DAILY 06/01 1000 AC SC Oxycodone/ 2 TAB Q6P PRN 05/31 2099 AC Acetaminophen PO Last 24 Hrs of Lab/Lam Results Last 24 Hrs of Labs/Mics: Laboratory Tests 05/31/16 2340: Triglycerides 48, Cholesterol 119, LDL Cholesterol, Calc 60 L, HDL Cholesterol 50, Cholesterol/HDL Ratio 2, Vitamin B12 550, Folate 11.8, TSH 1.990, Free T4 1.09 05/31/16 2340: Vit D 1,25-Dihyd Total Pending, 1,25 Dihydroxy Vit D2 Pending, 1,25 Dihydroxy Vit D3 Pending 05/31/16 1631: Anion Gap 10, Estimated GFR > 60, BUN/Creatinine Ratio 24.3, Glucose 84, Calcium 9.1, Total Bilirubin 0.8, AST 25, ALT 34, Alkaline Phosphatase 66, Troponin I < 0.01, Total Protein 6.9, Albumin 4.0, Globulin 2.9, Albumin/Globulin Ratio 1.4, Total Beta HCG NEGATIVE, PT 11.3, INR 1.08, APTT 32, CBC w Diff NO MAN DIFF REQ, RBC 4.65, MCV 83.2, MCH 27.8, RDW 13.3, MPV 9.2, Gran % 73.1, Lymphocytes % 19.5 L, Monocytes % 6.0, Eosinophils % 0.7, Basophils % 0.7, Absolute Granulocytes 7.9 H, Absolute Lymphocytes 2.1, Absolute Monocytes 0.6, Absolute Eosinophils 0.1, Absolute Basophils 0.1, PUBS MCHC 33.5, ESR Westergren 7, Lyme Disease Antibody 0.16, Urine Opiates Screen < 100.00, Methadone Screen < 40, Barbiturate Screen < 60, Ur Phencyclidine Scrn < 6.00, Amphetamines Screen < 100, U Benzodiazepines Scrn < 85, Urine Cocaine Screen < 50, Urine Cannabis Screen < 5.00, Urine Color YEL, Urine Clarity CLEAR, Urine pH 6.0, Ur Specific [place] 1.020, Urine Protein NEG, Urine Ketones NEG, Urine Nitrite NEG, Urine Bilirubin NEG, Urine Urobilinogen 0.2, Ur Leukocyte Esterase NEG, Urine Hemoglobin NEG, Urine Glucose NEG Assessment/Plan Assessment: 86-year-old woman with no significant medical conditions and on not on any regular medications admitted here for headache a few hours duration followed by facial and hand numbness and tingling associated with heaviness of left eye. CT head showed no acute intracranial pathology, carotid ultrasound shows 50- 69% stenosis however there is vessel tortuosity, normal antegrade flow within vertebral arteries bilaterally, head MRI shows development of venous anomaly in the left frontal lobe, small foci of increased T2 and FLAIR signal that are nonspecific. Problem list possible Migraine with neurologic symptoms Plan Per neurology will continue with further imaging with CTA neck Will continue aspirin, statin The medications phendimetrazine which she took for a weight loss Can cause rapid or irregular heartbeat, delirium, panic, psychosis, and heart failure. DVT prophylaxis with Lovenox however patient is refusing Lovenox at this time, continue with mechanical Alps Regular diet Full code Problem List: 1. Facial paresthesia Pain Ratin Pain Location: Not applicable Pain Goal: Pain 4 or less Pain Plan: current regimen Tomorrow's Labs & Rationales: BEP
--- NOTE | 2016-06-01 14:24 | Cons- Neurology ---
General Information and HPI Consulting Request Date of Consult: 06/01/16 Requested By: AYAH SANTA MD History of Present Illness: 26 year old female who yesterday afternoon while at a meeting and an unusual event. She first noted an occipital nuchal headache which was described as a pressure- like sensation which lasted 45 minutes She then noted a sense of numbness on the left side of the face; she states when touching the face there was no actual sensory loss This was then followed by a sense of numbness in the left hand but no weakness She also noted a blurred visual sense in the left eye There was no vertigo and no history of diplopia Symptoms lasted about 3 hours and then slowly resolved She did not have similar symptoms previously There was no history of head trauma Allergies/Medications Allergies: Coded Allergies: shellfish derived (Intermediate, FACIAL SWELLING AND REDNESS 05/31/16) Home Med List: No Known Home Medications Current Medications: Current Medications Sig/Lon Start time Last Medication Dose Route Stop Time Status Admin Acetaminophen 650 MG Q6 05/31 2359 DC PO Acetaminophen 650 MG Q6P PRN 05/31 2315 AC PO Acetaminophen/ 1 TAB Q6 05/31 2359 DC Hydrocodone Bitart PO Acetaminophen/ 1 TAB Q6P PRN 05/31 2315 AC Hydrocodone Bitart PO Aspirin 81 MG DAILY 06/01 1000 AC 06/01 PO 1042 Aspirin 0 .STK-MED ONE 05/31 1837 DC PO Aspirin 325 MG ONCE ONE 05/31 1815 DC 05/31 PO 05/31 1816 1836 Atorvastatin Calcium 80 MG 1700 05/31 2100 AC 05/31 PO 2118 Enoxaparin Sodium 40 MG DAILY 06/01 1000 AC SC Oxycodone/ 2 TAB Q6P PRN 05/31 2100 AC Acetaminophen PO Review of Systems Review of Systems: No history of headache disorder, diplopia, hearing change, chest pains, difficulty swallowing, nausea or vomiting, shortness of breath, fever, incontinence, falls, imbalance, swelling She has been on a recent weight loss program and was given a stimulant Past History Travel History Traveled to [place] past 21 day No Medical History Blood Transfusion Hx: No Neurological: NONE EENT: NONE Cardiovascular: NONE Respiratory: NONE Gastrointestinal: NONE Hepatic: NONE Renal: NONE Musculoskeletal: NONE Psychiatric: NONE Endocrine: NONE Blood Disorders: NONE Cancer(s): NONE MANAGER OF DATA/Reproductive: NONE Surgical History Surgical History: non-contributory Psychosocial History Where Do You Live? Home (no family history of headache ) Who Do You Live With? parent Services at Home: None Primary Language: Brazilian Smoking Status: Never Smoked ETOH Use: occasional use Illicit Drug Use: denies illicit drug use Functional Ability ADLs Independent: dressing, eating, toileting, bathing. IADLs Independent: shopping, housework, finances, food prep, telephone, transportation , medication admin. Exam & Diagnostic Data Vital Signs and I&O Vital Signs Date Time Temp Pulse Resp B/P Pulse O2 O2 Flow FiO2 Ox Delivery Rate 06/02 799 97.9 78 20 108/58 97 Room Air 05/31 2230 97.8 96 18 138/78 98 Room Air 05/31 2042 80 102/70 05/31 2041 80 118/72 05/31 1603 97 Room Air 05/31 1531 97.3 72 20 123/79 98 Room Air Intake & Output 06/01 1600 06/01 0800 06/01 0000 Intake Total 480 480 Output Total Balance 480 480 Intake, Oral 480 480 Number 1 1 Bowel Movements Patient 233 lb Weight Physical Exam: Alert and oriented Language functions fund of knowledge attention span concentration recall intact Heart sounds normal, no carotid bruits, distal pulses intact Extraocular movements full, fundi benign, visual becerra intact, no facial weakness or facial sensory loss, palate tongue and shoulders intact, hearing intact Normal tone and strength upper and lower extremities Normal sensory exam to touch and position Deep tendon reflexes hypoactive throughout Plantar responses flexor Coordinative functions and gait intact Last 48 Hours of Lab Results: Laboratory Tests 05/31 05/31 05/31 2340 2340 1631 Chemistry Sodium (137 - 145 mmol/L) 137 Potassium (3.5 - 5.1 mmol/L) 4.0 Chloride (98 - 107 mmol/L) 106 Carbon Dioxide (22 - 30 mmol/L) 21 L Anion Gap (5 - 16) 10 BUN (7 - 17 mg/dL) 17 Creatinine (0.5 - 1.0 mg/dL) 0.7 Estimated GFR (>60 ml/min) > 60 BUN/Creatinine Ratio (7 - 25 %) 24.3 Glucose (65 - 99 mg/dL) 84 Calcium (8.4 - 10.2 mg/dL) 9.1 Total Bilirubin (0.2 - 1.3 mg/dL) 0.8 AST (14 - 36 U/L) 25 ALT (9 - 52 U/L) 34 Alkaline Phosphatase (<127 U/L) 66 Troponin I (< 0.11 ng/ml) < 0.01 Total Protein (6.3 - 8.2 g/dL) 6.9 Albumin (3.5 - 5.0 g/dL) 4.0 Globulin (1.9 - 4.2 gm/dL) 2.9 Albumin/Globulin Ratio (1.1 - 2.2 %) 1.4 Triglycerides (<150 mg/dL) 48 Cholesterol (<200 MG/DL) 119 LDL Cholesterol, Calc (65 - 129 mg/dL) 60 L HDL Cholesterol (40 - 60 mg/dL) 50 Cholesterol/HDL Ratio (0.00 - 4.23 %) 2 Vitamin B12 (239 - 931 pg/mL) 550 Vit D 1,25-Dihyd Total Pending 1,25 Dihydroxy Vit D2 Pending 1,25 Dihydroxy Vit D3 Pending Folate (2.76 - 20.0 ng/mL) 11.8 TSH (0.270 - 4.200 uIU/mL) 1.990 Free T4 (0.79 - 2.35 ng/dL) 1.09 Total Beta HCG (NEGATIVE) NEGATIVE Coagulation PT (9.4 - 12.5 SEC) 11.3 INR (0.90 - 1.19) 1.08 APTT (25 - 37 SEC) 32 Hematology CBC w Diff NO MAN DIFF REQ WBC (4.8 - 10.8 /CUMM) 10.8 RBC (4.20 - 5.40 /CUMM) 4.65 Hgb (12.0 - 16.0 G/DL) 12.9 Hct (37 - 47 %) 38.7 MCV (81.0 - 99.0 FL) 83.2 MCH (27.0 - 31.0 PG) 27.8 RDW (11.5 - 14.5 %) 13.3 Plt Count (130 - 400 /CUMM) 173 MPV (7.4 - 10.4 FL) 9.2 Gran % (42.2 - 75.2 %) 73.1 Lymphocytes % (20.5 - 51.1 %) 19.5 L Monocytes % (1.7 - 9.3 %) 6.0 Eosinophils % (0 - 5 %) 0.7 Basophils % (0.0 - 2.0 %) 0.7 Absolute Granulocytes (1.4 - 6.5 /CUMM) 7.9 H Absolute Lymphocytes (1.2 - 3.4 /CUMM) 2.1 Absolute Monocytes (0.10 - 0.60 /CUMM) 0.6 Absolute Eosinophils (0.0 - 0.7 /CUMM) 0.1 Absolute Basophils (0.0 - 0.2 /CUMM) 0.1 PUBS MCHC (33.0 - 37.0 G/DL) 33.5 ESR Westergren (0 - 20 MM) 7 Serology Lyme Disease Antibody (RATIO) 0.16 Toxicology Urine Opiates Screen (>2000 NG/ML) < 100.00 Methadone Screen (>300 NG/ML) < 40 Barbiturate Screen (>200 NG/ML) < 60 Ur Phencyclidine Scrn (>25 NG/ML) < 6.00 Amphetamines Screen (>1000 NG/ML) < 100 U Benzodiazepines Scrn (>200 NG/ML) < 85 Urine Cocaine Screen (>300 NG/ML) < 50 Urine Cannabis Screen (>50 NG/ML) < 5.00 Urines Urine Color (YEL,AMB,STR) YEL Urine Clarity (CLEAR) CLEAR Urine pH (5.0 - 8.0) 6.0 Ur Specific [place] (1.001 - 1.035) 1.020 Urine Protein (NEG,<30 MG/DL) NEG Urine Ketones (NEG) NEG Urine Nitrite (NEG) NEG Urine Bilirubin (NEG) NEG Urine Urobilinogen (0.1 - 1.0 EU/dl) 0.2 Ur Leukocyte Esterase (NEG) NEG Urine Hemoglobin (NEG) NEG Urine Glucose (N MG/DL) NEG Imaging/Other Studies: IMPRESSION: 1. There are no acute bleeds or infarcts. 2. 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 3. There are no masses or areas of abnormal enhancement. 4. The small foci of increased T2 and FLAIR signal in the white matter are nonspecific and may be consistent with sequelae of vasculitis or migraine. 5. The cerebellar tonsillar tips lie 3 mm below the level of the foramen magnum and appear slightly pointed. This may be consistent with a mild Chiari I malformation. u/s IMPRESSION: An apparent 50-69% stenosis of the left internal carotid artery by sonographic criteria may be artifactually related to vessel tortuosity versus a true stenosis. There is no significant arterial stenosis involving the right internal carotid artery. Normal antegrade flow within the vertebral arteries bilaterally. Assessment/Plan Assessment: transient neurologic event, likely migrainous Carotid ultrasound shows questionable abnormality on the left side; MRA or CTA recommended to rule out dissection Recommendations: MRA or CTA recommended to rule out dissection Consult Acknowledgment - Thank you for your consult request.
[2016-06-01 16:21] VITALS: BP 118/78
[2016-06-01 22:44] VITALS: BP 116/74
--- NOTE | 2016-06-02 07:31 | Patient Discharge Instructions ---
Discharge Instructions General Discharge Information Special Instructions: please follow up with your primary care physician within one week of discharge Acute Coronary Syndrome Inclusion Criteria At DC or during hospital stay patient has or had the following: ACS DIAGNOSIS No Discharge Core Measures Meds if any: Prescribed or Continued at Discharge Meds if any: NOT Prescribed or Continued at Discharge Congestive Heart Failure Inclusion Criteria At DC or during hospital stay patient has or had the following: CHF DIAGNOSIS No Discharge Core Measures Meds if any: Prescribed or Continued at Discharge Meds if any: NOT Prescribed or Continued at Discharge Cerebrovascular accident Inclusion Criteria At DC or during hospital stay patient has or had the following: CVA/TIA Diagnosis No Discharge Core Measures Meds if any: Prescribed or Continued at Discharge Meds if any: NOT Prescribed or Continued at Discharge Venous thromboembolism Inclusion Criteria VTE Diagnosis No VTE Type NONE VTE Confirmed by (Test) NONE Discharge Core Measures - Per Current guidelines, there needs to be overlap - treatment for the first 5 days of Warfarin therapy. - If discharged on Warfarin prior to 5 days of - overlap therapy, the patient will need to be - assessed for post discharge needs including - *Post discharge parental anticoagulation - *Warfarin and/or parental anticoagulation education - *Follow up date to check INR post discharge At least 5 days overlap therapy as Inpatient No Meds if any: Prescribed or Continued at Discharge Note: Overlap Therapy is Warfarin and Anticoagulant Meds if any: NOT Prescribed or Continued at Discharge
[2016-06-02 08:00] VITALS: BP 110/64
--- NOTE | 2016-06-02 08:08 | PN- Housestaff ---
SANDIE BEE 06/02/16 0808: Subjective Follow-up For: headache numbness on the left side of the face Tele-Events Since Last Visit: NSR, 61-64, no overnight events. Subjective: Seen and examined patient. . Has had no new symptoms except that the left upper eyelid feels swollen and mild headache. Denies change in vision, numbness, tingling, weakness. Review of Systems Constitutional: Denies: chills, diaphoresis, fever, malaise, weakness, unexplained weight loss. Cardiovascular: Denies: chest pain, edema, orthopena, palpitations, peripheral edema, syncope. Respiratory: Denies: cough, hemoptysis, orthopnea, short of breath, sputum production, stridor, wheezing. Objective Last 24 Hrs of Vital Signs/I&O Vital Signs Date Time Temp Pulse Resp B/P Pulse O2 O2 Flow FiO2 Ox Delivery Rate 06/02 08 98.2 88 20 110/64 97 Room Air 06/01 2244 98.1 82 16 116/74 99 Room Air 06/01 1621 97.6 74 18 118/78 97 Room Air 06/01 1600 Room Air Intake & Output 06/02 1600 06/02 0800 06/02 0000 Intake Total 240 720 Output Total Balance 240 720 Intake, Oral 240 720 Physical Exam General Appearance: Alert, Oriented X3, Cooperative, No Acute Distress Cardiovascular: Regular Rate, Normal S1, Normal S2 Lungs: Clear to Auscultation, Normal Air Movement Neurological: Normal Speech, Strength at 5/5 X4 Ext, Normal Tone, Sensation Intact, Cranial Nerves 3-12 NL Current Medications: Current Medications Sig/Lon Start time Last Medication Dose Route Stop Time Status Admin Acetaminophen 650 MG Q6P PRN 05/31 2315 AC PO Acetaminophen/ 1 TAB Q6P PRN 05/31 2315 AC Hydrocodone Bitart PO Aspirin 81 MG DAILY 06/01 1000 AC 06/02 PO 0828 Atorvastatin Calcium 80 MG 1700 05/31 2100 AC 06/01 PO 1618 Enoxaparin Sodium 40 MG DAILY 06/01 1000 AC SC Oxycodone/ 2 TAB Q6P PRN 05/31 2100 AC Acetaminophen PO Last 24 Hrs of Lab/Lam Results Last 24 Hrs of Labs/Mics: Laboratory Tests 06/02/16 0632: Anion Gap 8, Estimated GFR > 60, BUN/Creatinine Ratio 16.7, Magnesium 1.9 Assessment/Plan Assessment: 86-year-old woman with no significant medical conditions and on not on any regular medications admitted here for headache a few hours duration followed by facial and hand numbness and tingling associated with heaviness of left eye. CT head showed no acute intracranial pathology, carotid ultrasound shows 50- 69% stenosis however there is vessel tortuosity, normal antegrade flow within vertebral arteries bilaterally, head MRI shows development of venous anomaly in the left frontal lobe, small foci of increased T2 and FLAIR signal that are nonspecific. Problem list possible Migraine with neurologic symptoms Plan Per neurology will continue with further imaging with MRA neck Will discuss the need to continue aspirin, statin DVT prophylaxis with Lovenox however patient is refusing Lovenox at this time, continue with mechanical Alps Regular diet Full code Problem List: 1. Facial paresthesia Pain Ratin Pain Location: na Pain Goal: Pain 4 or less Pain Plan: current regimen Tomorrow's Labs & Rationales: NONE REQUIRED AYAH SANTA MD 06/02/16 1306: Attending MD Review Statement Attending Statement Attending MD Statement: examined this patient, discuss w/resident/PA/CARD CUTTER HELPER, agreed w/resident/PA/CARD CUTTER HELPER, reviewed EMR data (avail) Attending Assessment/Plan: Asymptomatic. Feels well. No complaints. Neuro exam grossly normal. 1. Left facial numbness and weakness 2. Left hand numbness and weakness 3. Tortuosity of left carotid artery Plan - Stable for discharge home - MRI reveals no stroke or masses - MRA neck shows no evidence of stenosis or thrombosis in carotids - Echocardiogram normal - Lipid panel and TSH normal - Does not need ASA or statin on discharge. Advise to stop dietary medication, as this may have precipitated symptoms.
--- NOTE | 2016-06-02 08:42 | ECHOCARDIOGRAM REPORT ---
NEIL POWERS Age: 26 : 1990 Gender: F Exam Date: 06/01/2016 18:33 Exam Location: [place] Ht (in): 60 Wt (lb): 233 BSA: 2.18 BP: 118 / 78 Ordering Physician: MABEL SOLORZANO M Referring Physician: Pieter Guillen MD Technologist: Laxmi Burrell [facility] Room Number: 188 Indications: TIA Rhythm: Sinus Technical Quality: Fair, Technically difficult study FINDINGS Left Ventricle Normal size left ventricle. No obvious regional wall motion abnormalities. Normal left ventricular ejection fraction estimated at 55-60%. Right Ventricle Right ventricle not well visualized, grossly normal. Right Atrium Normal right atrial size. Left Atrium Normal left atrial size. Mitral Valve Mitral valve thickened. Trace mitral regurgitation. Aortic Valve Structurally normal trileaflet aortic valve. No aortic stenosis. No aortic regurgitation. Tricuspid Valve Tricuspid valve not well visualized, grossly normal. Trace to mild tricuspid regurgitation. Pulmonic Valve Pulmonic valve not well visualized, grossly normal. Pericardium Great Vessels Aortic root and proximal ascending aorta not well visualized, grossly normal. CONCLUSIONS 1. This was a technically difficult examination due to the patient's body habitus. 2. The aortic valve is trileaflet and normal. 3. Minimal thickening of the mitral leaflets is present with minimal mitral insufficiency. 4. There is no pericardial fluid detecteed. 5. The left ventricular chamber size and systolic function are normal. Additional images were obtained following the administration of IV contrast. 6. The right heart structures were not optimally visualized. Minimal to mild tricuspid insufficiency is present. The RV systolic pressure could not be accurately assessed. 7. There are no definite embolic sources identified on this study. If clinically indicated, a SHAKIR would better exclude potential embolic sources. Pieter Guillen M.D. (Electronically Signed) Final Date: 02 June 2016 08:40 MEASUREMENTS (Male / Female) Normal Values 2D ECHO LV Diastolic Diameter PLAX 4.2 cm 4.2 - 5.9 / 3.9 - 5.3 cm LV Systolic Diameter PLAX 2.6 cm 2.1 - 4.0 cm LV Fractional Shortening PLAX 38.1 % 25 - 46 % LV Ejection Fraction 2D Teich 68.7 % IVS Diastolic Thickness 0.9 cm LVPW Diastolic Thickness 0.9 cm LV Relative Wall Thickness 0.4 RV Internal Dim ED PLAX 2.4 cm 1.9 - 3.8 cm LVOT Diameter 2.0 cm Aortic Root Diameter 2.7 cm LA Systolic Diameter LX 3.3 cm 3.0 - 4.0 / 2.7 - 3.8 cm LA Volume 24.0 cm 18 - 58 / 22 - 52 cm Ascending Aorta Diameter 2.8 cm DOPPLER AV Peak Velocity 115.0 cm/s AV Peak Gradient 5.3 mmHg AV Mean Velocity 79.4 cm/s AV Mean Gradient 3.0 mmHg AV Velocity Time Integral 22.0 cm LVOT Peak Velocity 101.0 cm/s LVOT Peak Gradient 4.1 mmHg LVOT Mean Velocity 65.4 cm/s LVOT Mean Gradient 2.0 mmHg LVOT Velocity Time Integral 18.3 cm LVOT Stroke Volume 57.5 cm AV Area Cont Eq vti 2.6 cm AV Area Cont Eq pk 2.8 cm MV Peak Velocity 68.9 cm/s MV Peak Gradient 1.9 mmHg MV Mean Velocity 46.9 cm/s MV Mean Gradient 1.0 mmHg Mitral E Point Velocity 71.8 cm/s Mitral A Point Velocity 62.0 cm/s Mitral E to A Ratio 1.2 MV PHT Velocity 75.3 cm/s MV Deceleration [place] 278.0 cm/s MV Pressure Half Time 81.3 ms MV Area PHT 2.7 cm MV Deceleration Time 211.0 ms TR Peak Velocity 111.0 cm/s TR Peak Gradient 4.9 mmHg Right Atrial Pressure 5.0 mmHg Pulmonary Artery Systolic Pressu 9.9 mmHg Right Ventricular Systolic Press 9.9 mmHg PV Peak Velocity 159.0 cm/s PV Peak Gradient 10.1 mmHg PV Mean Velocity 91.0 cm/s PV Mean Gradient 4.0 mmHg PV Velocity Time Integral 31.0 cm LV E' Lateral Velocity 11.6 cm/s Mitral E to LV E' Lateral Ratio 6.2 LV E' Septal Velocity 11.4 cm/s Mitral E to LV E' Septal Ratio 6.3
--- NOTE | 2016-06-02 12:26 | MRI REPORT ---
EXAMINATION MRA NECK WITH AND WITHOUT CONTRAST CLINICAL INFORMATION: TIA symptoms, left side face and eyes. Evaluate for any carotid artery dissection. COMPARISON: Ultrasound duplex carotid and vertebral 05/31/2016. TECHNIQUE: 2-D [id number] and bolus IV enhanced MR angiography was performed through the cervical vasculature. Source images were reviewed along with MIPs. Angled MIPs and volumetric reconstructions were independently generated and archived by the [facility] laboratory. The degree of stenosis is based off NASCET criteria. A total of 20 ml of intravenous Magnevist was utilized for the examination. FINDINGS: There is a classic configuration of the aortic arch. The proximal arch vessels are nonstenotic. The left vertebral artery is dominant and both vertebral arteries are widely patent from their ostia until they delcid the dura. The common and internal carotid arteries are normal in course and caliber. There is no significant stenosis at the carotid bifurcations on either side. There is no evidence of dissection on the available images. The visualized intracranial carotid vertebral arteries appear patent. IMPRESSION: 1. No evidence of focal stenosis is demonstrated in the cervical carotid and vertebral arteries bilaterally. 2. There is no evidence of dissection on the available images.
--- NOTE | 2016-06-02 13:26 | PN- Cardiology ---
Subjective Subjective: The patient is doing clinically much better. She denies any new issues or symptoms. Results of MRI, echo, and MRA reviewed and noted. Objective Vital Signs and I&Os Vital Signs Date Time Temp Pulse Resp B/P Pulse O2 O2 Flow FiO2 Ox Delivery Rate 06/02 08 98.2 88 20 110/64 97 Room Air 06/01 2244 98.1 82 16 116/74 99 Room Air 06/01 1621 97.6 74 18 118/78 97 Room Air 06/01 1600 Room Air Intake & Output 06/02 0806/02 0000 06/01 1600 06/01 0806/01 0000 Intake Total 047 064 5044 480 480 Output Total Balance 528 674 0670 480 480 Intake, Oral 172 053 7454 480 480 Number 1 1 Bowel Movements Patient 233 lb Weight Current Medications: Current Medications Sig/Lon Start time Last Medication Dose Route Stop Time Status Admin Acetaminophen 650 MG Q6P PRN 05/31 2315 AC PO Acetaminophen/ 1 TAB Q6P PRN 05/31 2315 AC Hydrocodone Bitart PO Aspirin 81 MG DAILY 06/01 1000 AC 06/02 PO 0828 Atorvastatin Calcium 80 MG 1700 05/31 2100 AC 06/01 PO 1618 Enoxaparin Sodium 40 MG DAILY 06/01 1000 AC SC Oxycodone/ 2 TAB Q6P PRN 05/31 2100 AC Acetaminophen PO Results Last 48 Hrs of Labs/Mics: Laboratory Tests 06/02/16 0632: Anion Gap 8, Estimated GFR > 60, BUN/Creatinine Ratio 16.7, Magnesium 1.9 05/31/16 2340: Triglycerides 48, Cholesterol 119, LDL Cholesterol, Calc 60 L, HDL Cholesterol 50, Cholesterol/HDL Ratio 2, Vitamin B12 550, Folate 11.8, TSH 1.990, Free T4 1.09 05/31/16 2340: Vit D 1,25-Dihyd Total Pending, 1,25 Dihydroxy Vit D2 Pending, 1,25 Dihydroxy Vit D3 Pending 05/31/16 1631: Anion Gap 10, Estimated GFR > 60, BUN/Creatinine Ratio 24.3, Glucose 84, Calcium 9.1, Total Bilirubin 0.8, AST 25, ALT 34, Alkaline Phosphatase 66, Troponin I < 0.01, Total Protein 6.9, Albumin 4.0, Globulin 2.9, Albumin/Globulin Ratio 1.4, Total Beta HCG NEGATIVE, PT 11.3, INR 1.08, APTT 32, CBC w Diff NO MAN DIFF REQ, RBC 4.65, MCV 83.2, MCH 27.8, RDW 13.3, MPV 9.2, Gran % 73.1, Lymphocytes % 19.5 L, Monocytes % 6.0, Eosinophils % 0.7, Basophils % 0.7, Absolute Granulocytes 7.9 H, Absolute Lymphocytes 2.1, Absolute Monocytes 0.6, Absolute Eosinophils 0.1, Absolute Basophils 0.1, PUBS MCHC 33.5, ESR Westergren 7, Lyme Disease Antibody 0.16, Urine Opiates Screen < 100.00, Methadone Screen < 40, Barbiturate Screen < 60, Ur Phencyclidine Scrn < 6.00, Amphetamines Screen < 100, U Benzodiazepines Scrn < 85, Urine Cocaine Screen < 50, Urine Cannabis Screen < 5.00, Urine Color YEL, Urine Clarity CLEAR, Urine pH 6.0, Ur Specific [place] 1.020, Urine Protein NEG, Urine Ketones NEG, Urine Nitrite NEG, Urine Bilirubin NEG, Urine Urobilinogen 0.2, Ur Leukocyte Esterase NEG, Urine Hemoglobin NEG, Urine Glucose NEG Assessment/Plan Assessment/Plan Assessment: 1. Neurologic symptoms; Possible TIA, possible migraine-the patient is chronically stable. Review of the MRA shows no evidence of any significant extracranial or intracranial vascular issues. MRI results noted. Neurology input noted. At the moment, I do not see any indication for further cardiac workup. Await final neurology input. 2. Abnormal carotid ultrasound-as noted, MRA shows no evidence of any significant carotid stenosis. Await final neurology input. Recommendations: -From my point of view, the patient can come off of the night monitor. -Further input as per neurology. -The patient can follow-up with me as an outpatient as needed. Continue telemetry? No
== END 2016-06-02 13:38 ==
LOC: ENRESERVTM → ENRESERVDT → ERH 15:13 → ERHI 19:13 → 1NO 19:13 → ENPENDDIS 19:13 → 1NO 21:43
PROVIDERS: Emergency Medicine; Internal Medicine; ADMIT Internal Medicine
DX: R20.8 Other disturbances of skin sensation (principal); R51 Headache
CPT/HCPCS: 70552; 70563; 86618; 36415; 70553; 80307; 81003; 82436; 82652; 93005; 93010; A9579; C8929; G0378; J1650; J3490; Q9957

== ENCOUNTER 2017-09-03 19:55 | Emergency (ER) | payer OTHER ==
[~2017-09-03] VITALS: Ht 152.4 cm; Wt 93.4 kg
--- NOTE | 2017-09-03 20:21 | ED GI/GU/ABDOMINAL COMPLAINT ---
History of Present Illness General Chief Complaint: Abdominal Pain/Flank Pain Stated Complaint: ABD PAIN Source: patient Exam Limitations: no limitations Vital Signs & Intake/Output Vital Signs & Intake/Output Vital Signs Date Time Temp Pulse Resp B/P B/P Pulse O2 O2 Flow FiO2 Mean Ox Delivery Rate 09/03 2021 Room Air 09/03 2009 98.1 80 16 113/73 98 Room Air Room Air Allergies Coded Allergies: shellfish derived (Intermediate, FACIAL SWELLING AND REDNESS 09/03/17) Reconcile Medications No Known Home Medications Triage Note: PT TO TRIAGE WITH CRAMPING DULL PAIN OFF AND ON FOR 1 WEEK. STATES NAUSEA STARTED TODAY. DENIES FEVERS. DENIES TROUBLE WITH URNATION. EATING DOES NOT MAKE WORSE Triage Nurses Notes Reviewed? yes ? N Is pt currently ? No HPI: 27F no PMH with 1 week of intermittent periumbilical pain described as stabbing, lasts for minutes, comes and goes, not associated with food or BM. For the past day or two, this has intensified and has become near constant. It now radiates to RUQ. She has decreased appetite, and a few episodes of loose stools, one of which was daron colored. No history of prior symptoms, though she has had a colonoscopy in the past for bloody stool that was unremarkable. Denies fever, chills, headache, SOB, chest pain, dysuria, constipation. No recent travel or sick contacts, though she frequently has contact with children. No other complaints. Past History Travel History Traveled to [place] past 21 day No Medical History Any Pertinent Medical History? see below for history Neurological: NONE EENT: NONE Cardiovascular: NONE Respiratory: NONE Gastrointestinal: NONE Hepatic: NONE Renal: NONE Musculoskeletal: NONE Psychiatric: NONE Endocrine: NONE Blood Disorders: NONE Cancer(s): NONE LOG DECK TENDER/Reproductive: NONE History of MRSA: No History of VRE: No History of CDIFF: No Influenza Vaccine: 01/02/16 Surgical History Surgical History: non-contributory Psychosocial History Services at Home None What is your primary language Yakut Tobacco Use: Never used ETOH Use: occasional use Illicit Drug Use: denies illicit drug use Family History Hx Contributory? No Review of Systems Review of Systems Constitutional: Reports: no symptoms. EENTM: Reports: no symptoms. Respiratory: Reports: no symptoms. Cardiovascular: Reports: no symptoms. GI: Reports: no symptoms. Genitourinary: Reports: no symptoms. Musculoskeletal: Reports: no symptoms. Skin: Reports: no symptoms. Neurological/Psychological: Reports: no symptoms. Hematologic/Endocrine: Reports: no symptoms. Immunologic/Allergic: Reports: no symptoms. All Other Systems: Reviewed and Negative Physical Exam Physical Exam General Appearance: well developed/nourished, no apparent distress Head: atraumatic, normal appearance Eyes: Bilateral: normal appearance. Ears, Nose, Throat, Mouth: moist mucous membrane Neck: normal inspection, full range of motion Respiratory: normal breath sounds, no respiratory distress Cardiovascular: regular rate/rhythm Gastrointestinal: normal bowel sounds, soft, tender periumbilical and weakly positive Jo's sign Back: normal inspection, normal range of motion Extremities: normal range of motion Neurologic/Psych: awake, alert, oriented x 3, normal mood/affect Skin: intact, normal color, warm/dry Core Measures ACS in differential dx? No Sepsis Present: No Sepsis Focused Exam Completed? No Progress Differential Diagnosis: appendicitis, biliary colic, bowel obstruction, colon cancer, cholecystitis, diverticulitis, endometritis, esophageal varices, gastritis, hepatitis, hernia, ischemic bowel, inflamm bowel dis, ovarian cyst, pancreatitis, peptic ulcer, PUD/GERD, SBO Plan of Care: Orders Procedure Date/time Status URINALYSIS 09/04 2031 Complete LIPASE 09/03 2009 Complete HEPATIC FUNCTION PANEL 09/03 2009 Complete HUMAN BETA HCG SCREEN 09/03 2009 Complete CBC WITHOUT DIFFERENTIAL 09/03 2009 Complete BASIC METABOLIC PANEL 09/03 2009 Complete AMYLASE 09/03 2009 Complete Laboratory Tests 09/03/172032: Urine Color YEL, Urine Clarity HAZY H, Urine pH 7.0, Ur Specific [place] 1.020, Urine Protein NEG, Urine Ketones NEG, Urine Nitrite NEG, Urine Bilirubin NEG, Urine Urobilinogen 1.0, Ur Leukocyte Esterase NEG, Ur Microscopic SEDIMENT EXAMINED, Urine RBC RARE, Urine WBC RARE, Ur Epithelial Cells MOD H, Urine Bacteria MOD H, Urine Mucus FEW, Urine Hemoglobin TRACE-INTACT, Urine Glucose NEG 09/03/172020: Anion Gap 10, Estimated GFR > 60, BUN/Creatinine Ratio 18.6, Glucose 92, Calcium 8.6, Total Bilirubin 0.2, Direct Bilirubin 0.1, AST 18, ALT 26, Alkaline Phosphatase 50, Total Protein 6.3, Albumin 3.6, Amylase 50, Lipase 96, Total Beta HCG NEGATIVE, CBC w Diff NO MAN DIFF REQ, RBC 4.48, MCV 84.1, MCH 28.5, MCHC 33.9, RDW 14.3, MPV 9.2, Gran % 67.2, Lymphocytes % 24.4, Monocytes % 7.7, Eosinophils % 0.5, Basophils % 0.2, Absolute Granulocytes 3.1, Absolute Lymphocytes 1.1 L, Absolute Monocytes 0.4, Absolute Eosinophils 0, Absolute Basophils 0 Workup thus far negative. Will follow up with GI as outpatient. Diagnostic Imaging: Viewed by Me: CT Scan. Discussed w/RAD: CT Scan. Radiology Impression: PATIENT: NEIL POWERS PRESENT AGE: 27 PATIENT ACCOUNT NO: [id number] : 88 LOCATION: [facility] ORDERING PHYSICIAN: Mendy Adkins MD SERVICE DATE: 09/03/17 EXAM TYPE : CAT - CT ABD & PELVIS W IV CONTRAST EXAMINATION: CT ABDOMEN AND PELVIS WITH CONTRAST CLINICAL INFORMATION: Severe periumbilical pain. Pain radiates the right upper quadrant. Daron stools. COMPARISON: CT 04/16/2013 TECHNIQUE: Multidetector volumetric imaging was performed of the abdomen and pelvis following IV administration of 95 mL of Optiray 320 intravenous contrast. Sagittal and coronal reformatted images were obtained on the technologist's workstation. DLP: 761 mGy-cm FINDINGS: LUNG BASES: The visualized lung bases are unremarkable. LIVER, GALLBLADDER, AND BILIARY TREE: The liver is normal in size, shape, and attenuation. No focal hepatic lesion or biliary ductal dilatation is present. The gallbladder is unremarkable with no evidence of radiopaque gallstones, gallbladder wall thickening, or obvious pericholecystic inflammatory changes. PANCREAS: Unremarkable. SPLEEN: The spleen is enlarged measuring 13.7 cm.. ADRENAL GLANDS: Unremarkable. KIDNEYS AND URETERS: The kidneys are normal in size, shape, and attenuation. No hydronephrosis, hydroureter, or calculi seen. No perinephric stranding. BLADDER: Unremarkable. GASTROINTESTINAL TRACT: The small and large bowel are unremarkable. The appendix is unremarkable. ABDOMINAL WALL: No significant hernia is appreciated. LYMPH NODES: Normal. VASCULAR: Unremarkable. PELVIC VISCERA: Uterus and ovaries appear within normal range. There is a small amount of free fluid within the pelvis within physiologic range. OSSEOUS STRUCTURES: No suspicious lytic or blastic lesions. No fracture. IMPRESSION: 1. No acute intra-abdominal or pelvic findings. No CT evidence for acute biliary obstruction. 2. Splenomegaly of uncertain significance. DICTATED BY: Angela Lucas MD DATE/TIME DICTATED:09/03/172231 HVAC/R INSTRUCTOR:STACEY DATE/TIME TRANSCRIBED:09/03/172231 Initial ED EKG: none Departure Departure Disposition: HOME OR SELF CARE Condition: Stable Clinical Impression Primary Impression: Periumbilical pain Secondary Impressions: Splenomegaly Referrals: Izaiah MCKEON,Silas (PCP/Family) Additional Instructions: Follow up with your GI doctor. Avoid any contact sports or contact to your abdomen. Follow up with your PCP for further workup of your splenomegaly. Try to keep a food diary to see if you can match up your symptoms to certain foods. Return to ER if new or worsening symptoms. Departure Forms: Customer Survey General Discharge Information Prescriptions: Current Visit Scripts No Known Home Medications
[2017-09-03 20:39] LABS: ABSOLUTE BASOPHIL COUNT 0 /CUMM (0.0-0.2); ABSOLUTE EOSINOPHIL COUNT 0 /CUMM (0.0-0.7); ABSOLUTE GRANULOCYTE CT 3.1 /CUMM (1.4-6.5); ABSOLUTE LYMPH COUNT 1.1 /CUMM (1.2-3.4); ABSOLUTE MONOCYTE COUNT 0.4 /CUMM (0.10-0.60); BASOPHIL % 0.2 % (0.0-2.0); EOSINOPHIL % 0.5 % (0-5); GRANULOCYTE % 67.2 % (42.2-75.2); HEMATOCRIT 37.7 % (37-47); MEAN CORPUSCULAR HGB 28.5 PG (27.0-31.0); MEAN CORPUSCULAR HGB CONC 33.9 G/DL (33.0-37.0); MEAN CORPUSCULAR VOLUME 84.1 FL (81.0-99.0); MEAN PLATELET VOLUME 9.2 FL (7.4-10.4); PLATELET COUNT 150 /CUMM (130-400); RBC DISTRIBUTION WIDTH 14.3 % (11.5-14.5); RED BLOOD CELL CT 4.48 /CUMM (4.20-5.40); WHITE BLOOD CELL COUNT 4.6 /CUMM (4.8-10.8)
--- NOTE | 2017-09-03 22:45 | CT SCAN REPORT ---
EXAMINATION: CT ABDOMEN AND PELVIS WITH CONTRAST CLINICAL INFORMATION: Severe periumbilical pain. Pain radiates the right upper quadrant. Daron stools. COMPARISON: CT 04/16/2013 TECHNIQUE: Multidetector volumetric imaging was performed of the abdomen and pelvis following IV administration of 95 mL of Optiray 320 intravenous contrast. Sagittal and coronal reformatted images were obtained on the technologist's workstation. DLP: 761 mGy-cm FINDINGS: LUNG BASES: The visualized lung bases are unremarkable. LIVER, GALLBLADDER, AND BILIARY TREE: The liver is normal in size, shape, and attenuation. No focal hepatic lesion or biliary ductal dilatation is present. The gallbladder is unremarkable with no evidence of radiopaque gallstones, gallbladder wall thickening, or obvious pericholecystic inflammatory changes. PANCREAS: Unremarkable. SPLEEN: The spleen is enlarged measuring 13.7 cm.. ADRENAL GLANDS: Unremarkable. KIDNEYS AND URETERS: The kidneys are normal in size, shape, and attenuation. No hydronephrosis, hydroureter, or calculi seen. No perinephric stranding. BLADDER: Unremarkable. GASTROINTESTINAL TRACT: The small and large bowel are unremarkable. The appendix is unremarkable. ABDOMINAL WALL: No significant hernia is appreciated. LYMPH NODES: Normal. VASCULAR: Unremarkable. PELVIC VISCERA: Uterus and ovaries appear within normal range. There is a small amount of free fluid within the pelvis within physiologic range. OSSEOUS STRUCTURES: No suspicious lytic or blastic lesions. No fracture. IMPRESSION: 1. No acute intra-abdominal or pelvic findings. No CT evidence for acute biliary obstruction. 2. Splenomegaly of uncertain significance.
[2017-09-03 23:11] VITALS: BP 108/63
== END 2017-09-03 23:13 ==
LOC: ERH 19:55
PROVIDERS: Pediatrics
DX: R16.1 Splenomegaly, not elsewhere classified (principal)
CPT/HCPCS: 74177; 81001; 96374; 96375; J1200; J1720